=== PATIENT | male | born 1950 | race African-American/Black ===

== ENCOUNTER 2023-01-30 05:37 | Inpatient (IN) | payer MEDICARE, OTHER ==
[2023-01-30] VITALS (9 sets, daily range): BP systolic 103–178; BP diastolic 57–79
[~2023-01-30] VITALS: Ht 188 cm; Wt 87.7 kg
[2023-01-30] MEDS ORDERED: LABETALOL HCL 5 MG/ML 20 ML VIAL IVP PRN ×4 (06:00)
[2023-01-30 06:25] LABS: HEMATOCRIT 43.1 % (41-53); HEMOGLOBIN 13.9 g/dL (13.5-17.5); MEAN CORPUSCULAR HEMOGLOBIN 30.4 pg (26.0-34.0); MEAN CORPUSCULAR HGB CONC 32.1 G/dL (31.0-37.0); MEAN CORPUSCULAR VOLUME 95 fL (80-100); PLATELET COUNT (AUTO) 79 K/uL (150-450); RED BLOOD CELL COUNT(AUTO) 4.56 MIL/uL (4.50-5.90); RED CELL DISTRIBUTION WIDTH 18.1 % (11.5-14.5)
[2023-01-30 06:34] LABS: CREATININE 3.77 mg/dL (0.60-1.30); POTASSIUM 3.6 mmol/L (3.5-5.1)
[2023-01-30 06:39] LABS: INR 1.3 (0.9-1.1); PROTHROMBIN TIME 13.1 SEC (9.4-11.6)
[2023-01-30 06:40] LABS: BILIRUBIN,TOTAL 1.4 mg/dL (0.1-1.0); TOTAL PROTEIN, SERUM 6.6 g/dL (6.4-8.2)
[2023-01-30] MEDS ORDERED: MANNITOL 20%-100 GM/500 ML 500 ML IV ONE (06:45)
[2023-01-30 06:52] LABS: BAND NEUTROPHILS % (MANUAL) 13 % (0-5); LYMPHOCYTES % (MANUAL) 9 % (22-44); SEGMENTED NEUTROPHILS % 78 % (40-70)
[2023-01-30] MEDS ORDERED: SODIUM CHLORIDE 0.9% 100 ML ONE (07:06)
[2023-01-30] MEDS ORDERED: IOHEXOL 350 MG/ML 100 ML VIAL ONE (07:06)
[2023-01-30 08:11] LABS: AMPHET/METH SCREEN,URINE NEGATIVE (NEGATIVE); BARBITURATE SCREEN, URINE NEGATIVE (NEGATIVE); BENZODIAZEPINES SCREEN,URINE NEGATIVE (NEGATIVE); CANNABINOID SCREEN,URINE NEGATIVE (NEGATIVE); COCAINE SCREEN,URINE NEGATIVE (NEGATIVE); METHADONE SCREEN, URINE NEGATIVE (NEGATIVE); OPIATE SCREEN,URINE NEGATIVE (NEGATIVE); PHENCYCLIDINE SCREEN,URINE NEGATIVE (NEGATIVE)
[2023-01-30] MEDS ORDERED: ONDANSETRON HCL 4 MG/2 ML VIAL IVP PRN (08:15)
[2023-01-30] MEDS ORDERED: MORPHINE SULFATE 2 MG/ML SYRINGE IVP PRN (08:15)
[2023-01-30] MEDS ORDERED: ZOLPIDEM TARTRATE 5 MG TABLET PO PRN (08:15)
[2023-01-30] MEDS ORDERED: BISACODYL 10 MG RECTAL RECTAL SUPPOSITORY PR PRN (08:15)
[2023-01-30] MEDS ORDERED: HYDROCODONE/ACETAMINOPHEN 5-325 MG TABLET PO PRN (08:15)
[2023-01-30] MEDS ORDERED: ACETAMINOPHEN 325 MG TABLET PO PRN (08:15)
[2023-01-30] MEDS ORDERED: MAGNESIUM HYDROXIDE SUSPENSION 30 ML UDCUP PO PRN (08:15)
[2023-01-30] MEDS: PANTOPRAZOLE SODIUM 40 MG DR TABLET PO SCH (09:00)
[2023-01-30] MEDS: DOCUSATE SODIUM 100 MG CAPSULE PO SCH ×2 (09:00→21:30)
[2023-01-30] MEDS: NOREPINEPHRINE 8 MG/D5%-WATER 250 ML IV PRN ×3 (09:11→15:03)
[2023-01-30] MEDS ORDERED: EPINEPHrine 2 MG in DEXTROSE 5%-WATER 248 ML IV PRN (09:15)
[2023-01-30] MEDS ORDERED: EPINEPHrine 4 MG in DEXTROSE 5%-WATER 246 ML IV PRN (10:45)
[2023-01-30] MEDS: DOPamine 400MG/D5W[STANDARD] 250 ML IV PRN ×3 (11:30→20:14)
[2023-01-30] MEDS ORDERED: PHENYLEPHRINE 200 MG/D5%-WATER 250 ML IV PRN (12:00)
[2023-01-30] MEDS: VASOPRESSIN 40 UNITS in DEXTROSE 5%-WATER 98 ML IV PRN (13:44)
[2023-01-30] MEDS ORDERED: DEXTROSE 50%-WATER 25 GM/50 ML SYRINGE IVP PRN (14:30)
[2023-01-30] MEDS: MethylPREDNISolone SOD SUCC 125 MG/2 ML VIAL IVP SCH ×2 (14:52→18:36)
[2023-01-30] MEDS: INSULIN LISPRO 100 UNITS/ML SQ PRN ×2 (14:54→17:03)
[2023-01-30] MEDS: SODIUM CHLORIDE 3% 500 ML IV SCH (15:42)
[2023-01-30] MEDS ORDERED: ROCURONIUM BROMIDE 10 MG/ML 5 ML VIAL IV ONE (16:16)
[2023-01-30] MEDS ORDERED: ETOMIDATE 2 MG/ML 10 ML VIAL IV ONE (16:16)
[2023-01-30 17:11] LABS: GLUCOSE,POINT OF CARE 482 MG/DL (70-110)
[2023-01-30 17:12] LABS: GLUCOSE,POINT OF CARE 567 MG/DL (70-110)
[2023-01-30 20:30] LABS: GLUCOSE,POINT OF CARE 548 MG/DL (70-110)
[2023-01-31] VITALS: BP 106/52
[2023-01-31] MEDS: MethylPREDNISolone SOD SUCC 125 MG/2 ML VIAL IVP SCH ×5 (00:22→23:56)
[2023-01-31] MEDS: INSULIN LISPRO 100 UNITS/ML SQ PRN ×5 (00:24→23:56)
[2023-01-31] MEDS: DOPamine 400MG/D5W[STANDARD] 250 ML IV PRN ×3 (02:24→17:17)
[2023-01-31 04:00] VITALS: BP 121/54
[2023-01-31 04:26] LABS: GLUCOSE,POINT OF CARE 385 MG/DL (70-110)
[2023-01-31] MEDS: SODIUM CHLORIDE 3% 500 ML IV SCH (04:35)
[2023-01-31] MEDS: VASOPRESSIN 40 UNITS in DEXTROSE 5%-WATER 98 ML IV PRN (06:30)
[2023-01-31] MEDS: NOREPINEPHRINE 8 MG/D5%-WATER 250 ML IV PRN ×2 (06:30→20:32)
[2023-01-31 06:31] LABS: GLUCOSE,POINT OF CARE 326 MG/DL (70-110)
[2023-01-31 07:02] LABS: HEMATOCRIT 33.9 % (41-53); HEMOGLOBIN 10.8 g/dL (13.5-17.5); MEAN CORPUSCULAR HEMOGLOBIN 30.5 pg (26.0-34.0); MEAN CORPUSCULAR VOLUME 96 fL (80-100); PLATELET COUNT (AUTO) 45 K/uL (150-450); RED BLOOD CELL COUNT(AUTO) 3.55 MIL/uL (4.50-5.90); RED CELL DISTRIBUTION WIDTH 18.3 % (11.5-14.5)
[2023-01-31 08:00] VITALS: BP 124/54
[2023-01-31] MEDS: DOCUSATE SODIUM 100 MG CAPSULE PO SCH ×2 (08:15→19:53)
[2023-01-31] MEDS: PANTOPRAZOLE SODIUM 40 MG DR TABLET PO SCH (08:16)
[2023-01-31 09:05] LABS: BAND NEUTROPHILS % (MANUAL) 40 % (0-5); LYMPHOCYTES % (MANUAL) 10 % (22-44); SEGMENTED NEUTROPHILS % 50 % (40-70)
[2023-01-31 12:00] VITALS: BP 138/71
[2023-01-31 16:00] VITALS: BP 151/56
[2023-01-31 18:51] LABS: GLUCOSE,POINT OF CARE 273 MG/DL (70-110)
[2023-01-31 20:00] VITALS: BP 143/59
[2023-01-31 21:52] LABS: GLUCOSE,POINT OF CARE 291 MG/DL (70-110)
[2023-01-31] MEDS ORDERED: SODIUM CHLORIDE 0.9% 250 ML IV ONE (23:46)
[2023-02-01] VITALS: BP 141/53
[2023-02-01 01:11] LABS: GLUCOSE,POINT OF CARE 311 MG/DL (70-110)
[2023-02-01] MEDS: VASOPRESSIN 40 UNITS in DEXTROSE 5%-WATER 98 ML IV PRN (03:18)
[2023-02-01 04:00] VITALS: BP 135/52
[2023-02-01] MEDS: MethylPREDNISolone SOD SUCC 125 MG/2 ML VIAL IVP SCH ×2 (06:07→12:07)
[2023-02-01] MEDS: INSULIN LISPRO 100 UNITS/ML SQ PRN ×2 (06:10→12:04)
[2023-02-01 08:00] VITALS: BP 123/53
[2023-02-01 08:36] LABS: GLUCOSE,POINT OF CARE 303 MG/DL (70-110)
[2023-02-01] MEDS: PANTOPRAZOLE SODIUM 40 MG DR TABLET PO SCH (09:01)
[2023-02-01] MEDS: DOCUSATE SODIUM 100 MG CAPSULE PO SCH (09:01)
[2023-02-01 12:00] VITALS: BP 165/76
[2023-02-01 12:17] VITALS: BP 159/72
[2023-02-01] MEDS: DOPamine 400MG/D5W[STANDARD] 250 ML IV PRN (12:17)
[2023-02-01] MEDS ORDERED: EPINEPHrine 1:10,000 [1 MG/10 ML] SYRINGE IVP ONE (17:44)
[2023-02-01 20:11] LABS: GLUCOSE,POINT OF CARE 278 MG/DL (70-110)
== END 2023-02-01 17:00 | DRG 64 ==
LOC: EMS 05:38 → ICU 07:17 → UNDOADMIN 10:55 → ICU 10:55
PROVIDERS: ADMIT Internal Medicine; ATTEND Internal Medicine
PROC: 5A1945Z Respiratory Ventilation, 24-96 Consecutive Hours (ICD-10-PCS; principal; 2023-01-30)
PROC: 0BH17EZ Insertion of Endotracheal Airway into Trachea, Via Natural or Artificial Opening (ICD-10-PCS; 2023-01-30)
PROC: 3E0A3GC Introduction of Other Therapeutic Substance into Bone Marrow, Percutaneous Approach (ICD-10-PCS; 2023-01-30)
PROC: 30233K1 Transfusion of Nonautologous Frozen Plasma into Peripheral Vein, Percutaneous Approach (ICD-10-PCS; 2023-01-30)
PROC: 05HB33Z Insertion of Infusion Device into Right Basilic Vein, Percutaneous Approach (ICD-10-PCS; 2023-01-30)
PROC: 0DH67UZ Insertion of Feeding Device into Stomach, Via Natural or Artificial Opening (ICD-10-PCS; 2023-01-30)
DX: I61.8 Other nontraumatic intracerebral hemorrhage (principal); G93.41 Metabolic encephalopathy; G93.6 Cerebral edema; J96.00 Acute respiratory failure, unspecified whether with hypoxia or hypercapnia; N18.6 End stage renal disease; D68.9 Coagulation defect, unspecified; I12.0 Hypertensive chronic kidney disease with stage 5 chronic kidney disease or end stage renal disease; Z94.0 Kidney transplant status; N17.9 Acute kidney failure, unspecified; R00.1 Bradycardia, unspecified; Z66 Do not resuscitate; I46.9 Cardiac arrest, cause unspecified; E11.22 Type 2 diabetes mellitus with diabetic chronic kidney disease; N40.0 Benign prostatic hyperplasia without lower urinary tract symptoms; E78.5 Hyperlipidemia, unspecified; M10.9 Gout, unspecified; Z96.649 Presence of unspecified artificial hip joint; I95.9 Hypotension, unspecified; Z51.5 Encounter for palliative care
CPT/HCPCS: 36245; 36569; 70496; 70498; 71045; 76937; 80053; 80307; 82948; 82962; 84295; 84484; 85025; 85610; 85730; 86850; 86900; 86901; 86927; 87081; 93005; 94002; 94003; 99291; G0378; J0171; J1265; J2370; J2930; J3490; J7030; J7050; J7060; P9017; Q9967; 36415-L1; 36415-TC; 70450; 70450-TC